=== PATIENT | male | born 1965 | race Caucasian/White ===

== ENCOUNTER 2019-07-01 11:54 | Emergency (ER) | payer OTHER ==
[~2019-07-01] VITALS: Ht 175.3 cm; Wt 90.7 kg
[~2019-07-01 11:54] MED LIST: DIOVAN40 MG; LIPITOR10 MG; MOBIC15 MG; NAPROSYN500 MG PO; NORCO 5-325 TA1 EACH PO; PRILOSEC20 MG PO
[2019-07-01] MEDS ORDERED: OMEPRAZOLE20 M2 PO (12:07)
[2019-07-01] MEDS ORDERED: CELEBREX50 MG PO (12:08)
[2019-07-01 12:34] LABS: INFLUENZA A ANTIGEN Negative (Negative); INFLUENZA B ANTIGEN Negative (Negative)
[2019-07-01] MEDS ORDERED: PROMETH-CODEIN 65 ML PO (12:55)
[2019-07-01] MEDS ORDERED: LEVAQUIN 500 M500 MG PO (12:55)
[2019-07-01] MEDS ORDERED: VENTOLIN HFA 1818 GM INH (12:55)
[2019-07-01 13:06] VITALS: BP 138/100
== END 2019-07-01 13:07 | disposition home or self-care (01) ==
LOC: EDSEX 11:54 → M.ERS 11:54
PROVIDERS: Family Medicine
DX: J18.9 Pneumonia, unspecified organism (principal); I10 Essential (primary) hypertension; E78.5 Hyperlipidemia, unspecified; M19.90 Unspecified osteoarthritis, unspecified site; K21.9 Gastro-esophageal reflux disease without esophagitis; F17.210 Nicotine dependence, cigarettes, uncomplicated; Z90.49 Acquired absence of other specified parts of digestive tract